=== PATIENT | female | born 1950 | race African-American/Black ===

== ENCOUNTER → 2016-07-26 | Outpatient (CLI) | payer MEDICARE ==
[~2016-07-26] MED LIST: REGADENOSON INJ 0.4 MG/5 ML DISP.SYRIN IV ONE
--- NOTE | 2016-07-26 20:51 | DRAGON STRESS TEST REPORT ---
ntravenous Lexiscan Cardiolite stress test using single photon emmision computerized tomography. Date of procedure: 07/26/2016 Ordering Provider: Dr. Olga Hicks. Primary care provider: Dr. Lorenz. Indication: Chest pain. Coronary risk factors: Age, diabetes mellitus non- insulin-dependent, hypertension, and dyslipidemia Resting EKG: Sinus Rhythm. No acute changes. The patient had no chest pain or discomfort, and there were no arrhythmias seen Stress EKG:[ No changes of ischemia. Reason for termination: Protocol. Conclusions: Normal EKG and hemodynamic response to IV Lexiscan. Nuclear data: At rest the patient was given 14.83 millicuries of technetium 99m sestamibi injected intravenously. As per protocol rest non gated SPECT images were obtained. Subsequently the patient was given intravenous Lexiscan at a dose of 0.4 mg in 5 mL intravenously, followed by flush with normal saline. Subsequently the stress dose of 43.1 millicuries of technetium 99m sestamibi was injected intravenously. As per protocol stress gated images were obtained. Nuclear interpretation: Review of images showed that all segments of the myocardium had normal perfusion at rest, and normal perfusion post stress with IV Lexiscan. All segments of the myocardium had normal motion, contraction, and thickening by gated study. T. I D. ratio was normal at 1.00. Computer read rest, and stress left ventricular ejection fraction were 72 %, and 66 %, respectively. Conclusion: 1. There is no scintigraphic evidence of Lexiscan induced myocardial ischemia. 2. There is no scintigraphic evidence of myocardial infarction/scar. Recommendations: Aggressive risk factor modification, and treating the underlying co- morbidities. MTDD
== END ==
LOC: RAD 07:49
PROVIDERS: ATTEND Internal Medicine
DX: R07.9 Chest pain, unspecified (principal)
CPT/HCPCS: 93017; 78452; A9500; J2785; Q9969

== ENCOUNTER 2018-03-27 08:30 | Observation (INO) | payer MEDICARE ==
[~2018-03-27 08:30] MED LIST changes: +GLYCOPYRROLATE 1 MG/5 ML SYRINGE ONE; +LIDOCAINE 2% INJ-PF (20 MG/ML) 2 ML AMPUL ONE; +NEOSTIGMINE METHYLSULFATE 10 MG/10 ML VIAL ONE; -REGADENOSON INJ 0.4 MG/5 ML DISP.SYRIN IV ONE; +ROCURONIUM BROMIDE INJ 50 MG/5 ML VIAL IV ONE; +SUCCINYLCHOLINE CHLORIDE INJ 200 MG/10 ML VIAL ONE
[2018-03-27] MEDS ORDERED: RINGERS SOLUTION,LACTATED 1,000 ML IV ONE (08:50)
[2018-03-27] MEDS ORDERED: FENTANYL CITRATE INJ/PF 100 MCG/2 ML AMPUL IV ONE (08:51)
[2018-03-27] MEDS ORDERED: ONDANSETRON HCL INJ/PF 4 MG/2 ML SDV IV ONE (08:51)
--- NOTE | 2018-03-27 08:56 | ER Document Report ---
ED General - General Chief Complaint: Rectal Pain Stated Complaint: RECTAL PAIN Time Seen by Provider: 03/27/18 08:46 Notes: Patient is a 67-year-old female that presents to the emergency department for chief complaint of rectal pain. Patient states she has been having rectal pain due to a hemorrhoid over the last few weeks, she went to see the manager diabetes today, who referred her to the emergency department, for possible surgical intervention. Patient rates the pain currently as a 10 out of 10, sharp pain, at rest, and seems to be worse with bowel movements. She denies noting any bleeding associated with this hemorrhoid. She denies noting any fevers, chills, nausea, vomiting or abdominal pain. Denies any other associated symptoms at this time. She does report a history of thrombosed hemorrhoids in the past and required surgery. Past Medical History: CAD, hypertension Past Surgical History: PCI with 2 stents, hysterectomy Social History: Denies tobacco, alcohol or drug use Family History: Reviewed and noncontributory for presenting illness Allergies: Reviewed, see documented allergy list. REVIEW OF SYSTEMS: Unless otherwise stated in this report the patient's positive and negative responses for review of systems for constitutional, eyes, ENT, cardiovascular, respiratory, gastrointestinal, neurological, genitourinary, musculoskeletal, and integumentary systems and related systems to the presenting problem are either as stated in the HPI or were not pertinent or were negative for the symptoms and/or complaints related to the presenting medical problem. PHYSICAL EXAMINATION: Vital signs reviewed, nursing noted reviewed. GENERAL: Well-appearing, well-nourished and appears rather uncomfortable and in pain HEAD: Atraumatic, normocephalic. EYES: Eyes appear normal, extraocular movements intact, sclera anicteric, conjunctiva are normal. ENT: nares patent, oropharynx clear without exudates. Moist mucous membranes. NECK: Normal range of motion, supple without lymphadenopathy LUNGS: Breath sounds clear to auscultation bilaterally and equal. No wheezes rales or rhonchi. HEART: Regular rate and rhythm without murmurs ABDOMEN: Soft, nontender, normoactive bowel sounds. No rebound, guarding, or rigidity. No masses appreciated. RECTAL EXAM: Noted is a 3 cm thrombosed external hemorrhoid, on the right, internal rectal exam not performed, patient is rather tender EXTREMITIES: Nontender, good range of motion, no pitting or edema. NEUROLOGICAL: No focal neurological deficits. Moves all extremities spontaneously Motor and sensory grossly intact on exam. PSYCH: Appears uncomfortable, but appropriate and answering questions. SKIN: Warm, Dry, normal turgor, no rashes or lesions noted on exposed skin TRAVEL OUTSIDE OF THE [place] IN LAST 30 DAYS: No - Related Data Allergies/Adverse Reactions: codeine [Codeine] Allergy (Severe, Verified 03/27/18 08:38) rash Aourona-Wci-Eus Reductase Inhibitor Allergy (Severe, Verified 03/27/18 08:38) cramps Past Medical History - Social History Smoking Status: Never Smoker Family History: Reviewed & Not Pertinent - Past Medical History Cardiac Medical History: Reports: Hx Hypertension Denies: Hx Coronary Artery Disease, Hx Heart Attack Pulmonary Medical History: Denies: Hx Asthma, Hx Bronchitis, Hx COPD, Hx Pneumonia Neurological Medical History: Denies: Hx Cerebrovascular Accident, Hx Seizures Endocrine Medical History: Reports: Hx Diabetes Mellitus Type 2 Musculoskeletal Medical History: Denies Hx Arthritis Past Surgical History: Reports: Hx Hysterectomy, Hx Tonsillectomy - Immunizations Hx Diphtheria, Pertussis, Tetanus Vaccination: Yes Hx Pneumococcal Vaccination: 03/22/13 Physical Exam - Vital signs Vitals: Temp Pulse Resp BP Pulse Ox 98.7 F 76 16 153/83 H 96 03/27/18 08:39 03/27/18 08:39 03/27/18 08:39 03/27/18 08:39 03/27/18 08:39 Course - Re-evaluation Re-evalutation: Patient seen and examined vital signs reviewed. Laboratory data and imaging were ordered as appropriate for the patient's presenting symptoms and complaint, with consideration of any critical or life threatening conditions that may be associated with their obtained history and exam as noted above. Patient was treated with IV fluids, fentanyl, and Zofran Results were reviewed when available and demonstrated unremarkable preoperative testing results The patient was re-evaluated and was stable Evaluation was most consistent with thrombosed hemorrhoid, case discussed with the surgeon who graciously accepted the patient under their service and will take her to the operating room later today. Results were discussed with the patient at this point after careful consideration I feel that that patient should be admitted to the hospital. This was discussed with the patient that it is in the best interest for their care to be admitted for further evaluation and management. Patient agreed with this plan of care. A call was placed to the admitted physician, Dr. Connelly who graciously accepted the patient onto their service. *Note is created using voice recognition software and may contain spelling, syntax or grammatical errors. Laboratory 03/27/18 03/27/18 08:58 08:58 WBC 10.1 RBC 4.03 Hgb 12.2 Hct 36.4 MCV 91 MCH 30.3 MCHC 33.5 RDW 13.5 Plt Count 366 Seg Neutrophils % 79.4 H Lymphocytes % 15.0 Monocytes % 4.0 Eosinophils % 1.0 Basophils % 0.6 Absolute Neutrophils 8.0 Absolute Lymphocytes 1.5 Absolute Monocytes 0.4 Absolute Eosinophils 0.1 Absolute Basophils 0.1 Sodium 141.5 Potassium 3.6 Chloride 102 Carbon Dioxide 28 Anion Gap 12 BUN 18 Creatinine 0.98 Est GFR ( Amer) > 60 Est GFR (Non-Af Amer) 56 L Glucose 186 H Calcium 9.2 Total Bilirubin 0.9 Direct Bilirubin 0.3 Neonat Total Bilirubin Not Reportable Neonat Direct Bilirubin Not Reportable Neonat Indirect Bili Not Reportable AST 30 ALT 39 Alkaline Phosphatase 103 Total Protein 7.5 Albumin 4.1 Chest X-Ray 03/27/18 08:51 IMPRESSION: NO ACUTE RADIOGRAPHIC FINDING IN THE CHEST. - Vital Signs Vital signs: Temp Pulse Resp BP Pulse Ox 98.5 F 66 16 135/67 H 100 03/27/18 12:16 03/27/18 12:16 03/27/18 12:16 03/27/18 12:16 03/27/18 12:16 - Laboratory Result Diagrams: 03/27/18 08:58 03/27/18 08:58 Laboratory results interpreted by me: 03/27/18 03/27/18 08:58 08:58 Seg Neutrophils % 79.4 H Est GFR (Non-Af Amer) 56 L Glucose 186 H - EKG Interpretation by Me Additional EKG results interpreted by me: EKG demonstrates sinus rhythm with a ventricular rate of 79 bpm, normal axis, normal intervals, no evidence of acute ischemia on this EKG, there is prior EKG for comparison from 12/25/2014, without significant change. Discharge - Discharge Clinical Impression: Thrombosed external hemorrhoid Condition: Stable Disposition: ADMITTED INPATIENT Admitting Provider: Surgicalist - Dr. Connelly Unit Admitted: Surgical Floor
[2018-03-27 09:15] LABS: ABSOLUTE BASOPHILS # (AUTO) 0.1 10^3/uL (0.0-0.2); ABSOLUTE EOSINOPHILS # (AUTO) 0.1 10^3/uL (0.0-0.6); ABSOLUTE LYMPHOCYTES (AUTO) 1.5 10^3/uL (0.5-4.7); ABSOLUTE MONOCYTES (AUTO) 0.4 10^3/uL (0.1-1.4); BASOPHILS % (AUTO) 0.6 % (0-2); HEMATOCRIT 36.4 % (36.0-47.0); HEMOGLOBIN 12.2 g/dL (12.0-15.5); MEAN CORPUSCULAR HEMOGLOBIN 30.3 pg (27.0-33.4); MEAN CORPUSCULAR HGB CONC 33.5 g/dL (32.0-36.0); MEAN CORPUSCULAR VOLUME 91 fl (80-97); PLATELET COUNT 366 10^3/uL (150-450); RED BLOOD COUNT 4.03 10^6/uL (3.72-5.28); RED CELL DISTRIBUTION WIDTH 13.5 % (11.5-14.0); SEGMENTED NEUTROPHILS % (AUTO) 79.4 % (42-78); TOTAL CELLS COUNTED % (AUTO) 100 %; WHITE BLOOD COUNT 10.1 10^3/uL (4.0-10.5)
[2018-03-27] MEDS ORDERED: MORPHINE SULFATE 10 MG/ML INJ IV PRN ×2 (09:36→16:21)
[2018-03-27] MEDS ORDERED: NORMAL SALINE 1000 ML 1,000 ML IV PRN (09:36)
[2018-03-27] MEDS ORDERED: ONDANSETRON HCL INJ/PF 4 MG/2 ML SDV IV PRN (09:36)
[2018-03-27] MEDS ORDERED: GLUCAGON,HUMAN RECOMB 1 MG INJ IM PRN (09:43)
[2018-03-27] MEDS ORDERED: DEXTROSE 50%-WATER 25 GM/50 ML DISP.SYRIN IV PRN ×2 (09:43)
[2018-03-27] MEDS ORDERED: INSULIN LISPRO 100 UNIT/ML 3 ML VIAL SUBCUT PRN (09:43)
[2018-03-27] MEDS ORDERED: DEXTROSE 40% GEL 15 GM TUBE PO PRN ×2 (09:43)
--- NOTE | 2018-03-27 09:54 | PDOC H&P ---
History of Present Illness Admission Date/PCP: 03/27/18 09:33 ADRIANNE ARENAS MD Patient complains of: Rectal pain, thrombosed hemorrhoids. History of Present Illness: BRIDGET BASURTO is a 67 year old female with a 2-3-day history of anorectal pain. She noticed swelling in the area. She has a history of hemorrhoids, treated via nonsurgical means. The patient reports that her pain has increased significantly over the last 24 hours. The patient went to her head turbine operator today who recommended hospital admission and sent her to the ER. The patient reports that her pain is sharp and stabbing, unrelenting, and 10 out of 10. The patient reports dysuria secondary to pain. Her pain does not radiate. The patient denies melena, hematochezia, hematemesis, constipation , diarrhea, abdominal pain, chest pain, shortness of breath, fevers, chills, nausea, vomiting, dizziness, orthostasis, blurry vision. Her chronic medical conditions include diabetes and hypertension. Past Medical History Cardiac Medical History: Reports: Hypertension Denies: Coronary Artery Disease, Myocardial Infarction Pulmonary Medical History: Denies: Asthma, Bronchitis, Chronic Obstructive Pulmonary Disease (COPD), Pneumonia Neurological Medical History: Denies: Seizures Endocrine Medical History: Reports: Diabetes Mellitus Type 2 Musculoskeltal Medical History: Denies: Arthritis Hematology: Denies: Anemia Past Surgical History Past Surgical History: Reports: Hysterectomy, Tonsillectomy Social History Smoking Status: Never Smoker Frequency of Alcohol Use: None Drugs: None Hx Prescription Drug Abuse: No Family History Family History: Reviewed & Not Pertinent Parental Family History Reviewed: Yes Children Family History Reviewed: Yes Sibling(s) Family History Reviewed.: Yes Medication/Allergy Home Medications: Calcium/Magnesium/Vit D3 [Calcium 500 Mg Tablet] 1 each PO DAILY 12/23/11 Metformin HCl [Glucophage 500 Mg Tablet] 500 mg PO BID 12/23/11 Tradjenta 5 mg PO ASDIR PRN 12/23/11 Aspirin [Aspirin 81 mg Chewable Tablet] 81 mg PO DAILY 03/28/13 Valsartan/Hydrochlorothiazide [Diovan Hct 320-25 mg Tablet] 1 each PO DAILY Oxycodone HCl 5 mg PO Q6 PRN 03/31/13 Allergies/Adverse Reactions: codeine [Codeine] Allergy (Severe, Verified 03/27/18 08:38) rash Camztbl-Nuf-Mlt Reductase Inhibitor Allergy (Severe, Verified 03/27/18 08:38) cramps Review of Systems Constitutional: ABSENT: anorexia, chills, fatigue, fever(s), headache(s) Eyes: ABSENT: visual disturbances Ears: ABSENT: hearing changes Nose, Mouth, and Throat: ABSENT: sore throat Cardiovascular: ABSENT: chest pain, orthropnea, palpitations Respiratory: ABSENT: cough, dyspnea Gastrointestinal: PRESENT: other - Severe anorectal pain and swelling. ABSENT: abdominal pain, bloating, constipation, diarrhea, heartburn, hematemesis, hematochezia, melena, nausea, vomiting Genitourinary: PRESENT: difficulty urinating Musculoskeletal: ABSENT: back pain Integumentary: ABSENT: pruritus, rash Neurological: ABSENT: abnormal speech, confusion, convulsions, dizziness Psychiatric: ABSENT: anxiety, depression Endocrine: ABSENT: cold intolerance, heat intolerance Hematologic/Lymphatic: ABSENT: easy bleeding, easy bruising Physical Exam General appearance: PRESENT: mild distress - Anorectal pain, obese Head exam: PRESENT: atraumatic, normocephalic Eye exam: PRESENT: EOMI, PERRLA. ABSENT: scleral icterus Mouth exam: PRESENT: moist, neck supple Teeth exam: ABSENT: poor dentation Neck exam: ABSENT: meningismus, tenderness, thyromegaly, tracheal deviation Respiratory exam: PRESENT: clear to auscultation forrest, unlabored. ABSENT: chest wall tenderness, rhonchi, tachypnea, wheezes Cardiovascular exam: PRESENT: RRR Pulses: PRESENT: normal radial pulses Vascular exam: PRESENT: normal capillary refill. ABSENT: pallor GI/Abdominal exam: PRESENT: soft. ABSENT: distended, guarding, rebound, tenderness Rectal exam: PRESENT: hemorrhoids - Large thrombosed internal and external hemorrhoids in the right anterior position Extremities exam: ABSENT: clubbing Musculoskeletal exam: ABSENT: deformity Neurological exam: PRESENT: alert, awake, oriented to person, oriented to place , oriented to time, oriented to situation, CN II-XII grossly intact Psychiatric exam: ABSENT: agitated, anxious, depressed Focused psych exam: ABSENT: delusional Skin exam: ABSENT: cyanosis, erythema, jaundice Assessment & Plan - Diagnosis (1) Thrombosed external hemorrhoid Is this a current diagnosis for this admission?: Yes - Plan Summary Plan Summary: This is a 67-year-old female with thrombosed, enlarged internal and external hemorrhoids on the right side. The patient is in exquisite pain, and will require surgical intervention. I have discussed this with her at length. The patient is requesting surgery be performed. Risks/benefits discussed, informed consent obtained, and all questions answered.
--- NOTE | 2018-03-27 09:56 | RADIOLOGY REPORT (SQ) ---
EXAM DESCRIPTION: CHEST SINGLE VIEW COMPLETED DATE/TIME: 03/27/2018 9:45 am REASON FOR STUDY: PREOP COMPARISON: 12/25/2014 EXAM PARAMETERS: NUMBER OF VIEWS: One view. TECHNIQUE: Single frontal radiographic view of the chest acquired. RADIATION DOSE: NA LIMITATIONS: None. FINDINGS: LUNGS AND PLEURA: No opacities, masses or pneumothorax. No pleural effusion. MEDIASTINUM AND HILAR STRUCTURES: No masses. Contour normal. HEART AND VASCULAR STRUCTURES: Heart normal in size. Normal vasculature. BONES: No acute findings. HARDWARE: None in the chest. OTHER: No other significant finding. IMPRESSION: NO ACUTE RADIOGRAPHIC FINDING IN THE CHEST. TECHNICAL DOCUMENTATION: JOB ID: [id number] [employer]- All Rights Reserved Reading location - IP/workstation name: [email or web address]
[2018-03-27 10:09] LABS: ALANINE AMINOTRANSFERASE 39 U/L (9-52); ALBUMIN 4.1 g/dL (3.5-5.0); ALKALINE PHOSPHATASE 103 U/L (38-126); ANION GAP 12 (5-19); ASPARTATE AMINO TRANSFERASE 30 U/L (14-36); BILIRUBIN,DIRECT 0.3 mg/dL (0.0-0.4); BILIRUBIN,TOTAL 0.9 mg/dL (0.2-1.3); BLOOD UREA NITROGEN 18 mg/dL (7-20); CALCIUM 9.2 mg/dL (8.4-10.2); CARBON DIOXIDE 28 mmol/L (22-30); CHLORIDE 102 mmol/L (98-107); GLUCOSE 186 mg/dL (75-110); POTASSIUM 3.6 mmol/L (3.6-5.0); SODIUM 141.5 mmol/L (137-145); TOTAL PROTEIN 7.5 g/dL (6.3-8.2)
--- NOTE | 2018-03-27 13:02 | EKG REPORT ---
SEVERITY:- NORMAL ECG - SINUS RHYTHM : Confirmed by: Gal Jones MD 27-Mar-2018 13:02:15
[2018-03-27] MEDS ORDERED: METRONIDAZOLE 500 MG/NS RTU 500 MG/100 ML RTUPB IV PRN (14:00)
[2018-03-27] MEDS ORDERED: DEXAMETHASONE SOD PHOSPHATE INJ 4 MG/1 ML VIAL ONE (14:14)
[2018-03-27] MEDS ORDERED: PROPOFOL INJ 200 MG/20 ML VIAL IV ONE (14:14)
[2018-03-27] MEDS ORDERED: ACETAMINOPHEN 1,000 MG/100 ML RTUPB IV ONE (14:14)
[2018-03-27] MEDS ORDERED: ONDANSETRON HCL INJ/PF 4 MG/2 ML SDV ONE ×2 (14:14→15:52)
[2018-03-27] MEDS ORDERED: MIDAZOLAM 2 MG/2 ML INJ ONE (14:14)
[2018-03-27] MEDS ORDERED: FENTANYL CITRATE INJ/PF 100 MCG/2 ML AMPUL ONE (14:14)
[2018-03-27] MEDS ORDERED: BUPIVACAINE HCL/DEX-WATER/PF 15 MG/2 ML AMPULE ONE (14:35)
[2018-03-27] MEDS ORDERED: BUPIVACAINE INJ/PF LIPOSOME/PF 266 MG/20 ML SDV ONE (14:35)
[2018-03-27] MEDS ORDERED: LIDOCAINE 2% JELLY 30 ML TUBE ONE (14:35)
[2018-03-27] MEDS ORDERED: BACITRACIN ZINC OINTMENT 15 GM ONE (14:35)
[2018-03-27] MEDS ORDERED: DIPHENHYDRAMINE HCL 50 MG/ML VIAL IV PRN (14:51)
[2018-03-27] MEDS ORDERED: FENTANYL CITRATE INJ/PF 100 MCG/2 ML AMPUL IV PRN ×3 (14:51)
[2018-03-27] MEDS ORDERED: PROMETHAZINE HCL INJ 25 MG/1 ML VIAL IV PRN ×2 (14:51)
[2018-03-27] MEDS ORDERED: MEPERIDINE HCL/PF INJ 25 MG/1 ML DISP.SYRIN IV PRN (14:51)
--- NOTE | 2018-03-27 16:00 | Operative Report ---
Nonrecallable Operative Report DATE OF SURGERY: 03/27/18 PREOPERATIVE DIAGNOSIS: Thrombosed internal and external hemorrhoids POSTOPERATIVE DIAGNOSIS: 1. Thrombosed internal and external hemorrhoids. 2. Perirectal abscess associated with thrombosed hemorrhoids. OPERATION: 1. Single column hemorrhoidectomy (right posterior column). 2. Incision and drainage of a perirectal abscess SURGEON: KIERAN MIRZA ANESTHESIA: GA TISSUE REMOVED OR ALTERED: Right posterior hemorrhoid column COMPLICATIONS: Abscess formation within the thrombosed hemorrhoid. ESTIMATED BLOOD LOSS: Minimal PROCEDURE: Drains/implants: None. Procedure in detail: After informed consent was obtained, the patient was brought to the operating room and laid in the prone jackknife position. The area of the anus and rectum were prepped and draped in a normal sterile fashion. An anal block was created using Exparel. A Hill-Santos retractor was inserted into the rectum. The right posterior column was edematous and thrombosed from the internal to the external position. The hemorrhoid was elevated, and excision of the hemorrhoid was undertaken using Bovie electrocautery. Once the excision extended to the perianal skin a large amount of purulent material was encountered in the perirectal space. It appears that the thrombosed hemorrhoid had become secondarily infected in the external position. The hemorrhoid was completely excised. The abscess cavity was explored and irrigated. There was no evidence of fistulization. Once this was confirmed, the mucosa was closed using 3-0 chromic suture in simple running fashion. This was done internally. The external anal skin was left open to allow drainage of the perirectal abscess. A dressing was then placed, and the procedure was concluded. All sponge, instrument, and needle counts were correct x2. Condition: Stable.
[2018-03-27] MEDS: BISACODYL 5 MG TABEC PO SCH (17:25)
[2018-03-27] MEDS: IBUPROFEN 800 MG TABLET PO SCH (17:25)
[2018-03-27] MEDS ORDERED: LIDOCAINE 4%/TETRACAINE 0.5%/EPI 0.18% 5 ML TOPICAL SOLN TOP SCH (18:00)
[2018-03-27] MEDS: PSYLLIUM SEED-SF 5.85 GM PACKET PO SCH (21:27)
[2018-03-27] MEDS: METRONIDAZOLE 500 MG/NS RTU 500 MG/100 ML RTUPB IV SCH (22:00)
[2018-03-27] MEDS: DIBUCAINE 1% OINTMENT 28 GM PR SCH ×2 (22:01→23:47)
[2018-03-27] MEDS: BACITRACIN ZINC OINTMENT 15 GM TP SCH (22:02)
[2018-03-28 06:24] LABS: ABSOLUTE BASOPHILS # (AUTO) 0.1 10^3/uL (0.0-0.2); ABSOLUTE LYMPHOCYTES (AUTO) 1.8 10^3/uL (0.5-4.7); ABSOLUTE MONOCYTES (AUTO) 0.6 10^3/uL (0.1-1.4); ABSOLUTE NEUT (AUTO) 7.6 10^3/uL (1.7-8.2); BASOPHILS % (AUTO) 1.2 % (0-2); EOSINOPHILS % (AUTO) 0.2 % (0-6); HEMATOCRIT 32.6 % (36.0-47.0); HEMOGLOBIN 10.8 g/dL (12.0-15.5); LYMPHOCYTES % (AUTO) 17.6 % (13-45); MEAN CORPUSCULAR HGB CONC 33.2 g/dL (32.0-36.0); MEAN CORPUSCULAR VOLUME 90 fl (80-97); MONOCYTES % (AUTO) 5.9 % (3-13); PLATELET COUNT 335 10^3/uL (150-450); RED BLOOD COUNT 3.61 10^6/uL (3.72-5.28); RED CELL DISTRIBUTION WIDTH 13.4 % (11.5-14.0); SEGMENTED NEUTROPHILS % (AUTO) 75.1 % (42-78); TOTAL CELLS COUNTED % (AUTO) 100 %; WHITE BLOOD COUNT 10.2 10^3/uL (4.0-10.5)
[2018-03-28] MEDS: METRONIDAZOLE 500 MG/NS RTU 500 MG/100 ML RTUPB IV SCH ×3 (06:29→20:59)
[2018-03-28] MEDS: DIBUCAINE 1% OINTMENT 28 GM PR SCH ×3 (06:29→20:59)
[2018-03-28 06:43] LABS: ANION GAP 12 (5-19); BLOOD UREA NITROGEN 19 mg/dL (7-20); CALCIUM 8.6 mg/dL (8.4-10.2); CARBON DIOXIDE 25 mmol/L (22-30); CHLORIDE 101 mmol/L (98-107); GLUCOSE 202 mg/dL (75-110); POTASSIUM 4.1 mmol/L (3.6-5.0); SODIUM 137.6 mmol/L (137-145)
[2018-03-28] MEDS: IBUPROFEN 800 MG TABLET PO SCH ×3 (09:35→17:23)
[2018-03-28] MEDS: PSYLLIUM SEED-SF 5.85 GM PACKET PO SCH ×2 (09:35→18:51)
[2018-03-28] MEDS: ENOXAPARIN SODIUM INJ 40 MG/0.4 ML DISP.SYRIN SUBCUT SCH (09:36)
[2018-03-28] MEDS: BACITRACIN ZINC OINTMENT 15 GM TP SCH ×3 (09:37→18:50)
[2018-03-28] MEDS: HYDROCODONE/ACETAMINOPHEN 10-325 MG TABLET PO PRN ×2 (09:37→22:26)
[2018-03-28] MEDS: BISACODYL 5 MG TABEC PO SCH ×2 (09:37→17:23)
--- NOTE | 2018-03-28 11:54 | PDOC PROGRESS REPORT ---
Subjective Progress Note for:: 03/28/18 Subjective:: Feels much better. Still having some perianal pain however. Reason For Visit: THROMBOSED INTERNAL AND EXTERNAL HEMORRHOIDS Physical Exam Vital Signs: Temp Pulse Resp BP Pulse Ox 97.9 F 61 16 105/47 L 99 03/28/18 11:17 03/28/18 11:17 03/28/18 11:17 03/28/18 11:17 03/28/18 11:17 Intake & Output 03/27/18 03/28/18 03/29/18 06:59 06:59 06:59 Intake Total 1770 Output Total 510 Balance 1260 Weight 90.8 kg General appearance: PRESENT: no acute distress, cooperative Respiratory exam: PRESENT: clear to auscultation forrest Cardiovascular exam: PRESENT: RRR Rectal exam: PRESENT: other - Perianal region with moderate swelling with some surrounding erythema. Slight drainage. Some tenderness but no fluctuance appreciated. Results Laboratory Results: 03/28/18 05:58 03/28/18 05:58 03/28/18 03/28/18 05:58 05:58 WBC 10.2 RBC 3.61 L Hgb 10.8 L Hct 32.6 L MCV 90 MCH 30.0 MCHC 33.2 RDW 13.4 Plt Count 335 Seg Neutrophils % 75.1 Lymphocytes % 17.6 Monocytes % 5.9 Eosinophils % 0.2 Basophils % 1.2 Absolute Neutrophils 7.6 Absolute Lymphocytes 1.8 Absolute Monocytes 0.6 Absolute Eosinophils 0.0 Absolute Basophils 0.1 Sodium 137.6 Potassium 4.1 Chloride 101 Carbon Dioxide 25 Anion Gap 12 BUN 19 Creatinine 1.04 Est GFR ( Amer) > 60 Est GFR (Non-Af Amer) 53 L Glucose 202 H Calcium 8.6 Impressions: Chest X-Ray 03/27/18 08:51 IMPRESSION: NO ACUTE RADIOGRAPHIC FINDING IN THE CHEST. Assessment & Plan - Diagnosis (1) Thrombosed external hemorrhoid Is this a current diagnosis for this admission?: Yes Plan: Status post excision. (2) Perianal abscess Is this a current diagnosis for this admission?: Yes Plan: Patient also had a associated abscess that was drained. She still has some swelling and erythema in this region although she has had marked improvement of her perianal symptoms from preoperatively. Will keep the patient in the hospital end of the day for IV antibiotics and sitz bath.
[2018-03-28] MEDS ORDERED: LEVOFLOXACIN 500 MG/D5W RTU 500 MG/100 ML RTUPB IV SCH (13:00)
[2018-03-28] MEDS: HYDROCHLOROTHIAZIDE 12.5 MG TABLET PO SCH (14:22)
[2018-03-28] MEDS: LOSARTAN POTASSIUM 50 MG TABLET PO SCH (14:22)
[2018-03-28] MEDS ORDERED: ONDANSETRON HCL INJ/PF 4 MG/2 ML SDV IV PRN (15:30)
[2018-03-28] MEDS: METFORMIN HCL 500 MG TABLET PO SCH (17:22)
[2018-03-29] MEDS: DIBUCAINE 1% OINTMENT 28 GM PR SCH (05:01)
[2018-03-29] MEDS: METRONIDAZOLE 500 MG/NS RTU 500 MG/100 ML RTUPB IV SCH (05:01)
[2018-03-29] MEDS: IBUPROFEN 800 MG TABLET PO SCH (08:09)
[2018-03-29] MEDS: METFORMIN HCL 500 MG TABLET PO SCH (08:10)
[2018-03-29] MEDS ORDERED: (PENDING PHARMACY ID) (Losartan/Hydrochlorothiazide [Hyzaar 100-12.5 Tablet] 1 TAB) PO SCH (10:00)
[2018-03-29] MEDS ORDERED: METOPROLOL SUCCINATE 50 MG TAB.SR.24H PO SCH (10:00)
[2018-03-29] MEDS: BACITRACIN ZINC OINTMENT 15 GM TP SCH (10:26)
--- NOTE | 2018-03-29 10:26 | PDOC PROGRESS REPORT ---
Subjective Progress Note for:: 03/29/18 Subjective:: no c/o Reason For Visit: THROMBOSED INTERNAL AND EXTERNAL HEMORRHOIDS Physical Exam Vital Signs: Temp Pulse Resp BP Pulse Ox 98.3 F 65 16 129/61 H 95 03/29/18 07:44 03/29/18 07:44 03/29/18 07:44 03/29/18 07:44 03/29/18 07:44 Intake & Output 03/28/18 03/29/18 03/30/18 06:59 06:59 06:59 Intake Total 1770 2112 Output Total 510 Balance 1260 2112 Weight 90.8 kg 90.7 kg General appearance: PRESENT: no acute distress Rectal exam: PRESENT: other - well healing right perianal surgical wound, minimal discomfort, no drainag Results Laboratory Results: 03/28/18 05:58 03/28/18 05:58 Impressions: Chest X-Ray 03/27/18 08:51 IMPRESSION: NO ACUTE RADIOGRAPHIC FINDING IN THE CHEST. Assessment & Plan - Diagnosis (1) Thrombosed external hemorrhoid Is this a current diagnosis for this admission?: Yes (2) Perianal abscess Is this a current diagnosis for this admission?: Yes - Plan Summary Plan Summary: A/ POD#2 agter hemorrhoid thombectomy and drainage of perirectal at hemorrhoid site VSS, AF PE shows a well healing perianal wound and no edema P/ Home today F/u with Dr. Connelly in 2 weeks Sitz bath x 30 min twice a day Apply triple antibiotic ointment (over the counter, ask Pharmacist) to perianum 1/2 inch 3 times a day apply dubuivacaine locvasl anesthetic cream to perianum as needed for pain every 2-3 hrs (about 1/2 inch) avoid constipation with Miralax 1-2 cups daily no rectal manipulations
[2018-03-29] MEDS: BISACODYL 5 MG TABEC PO SCH (10:27)
[2018-03-29] MEDS: PSYLLIUM SEED-SF 5.85 GM PACKET PO SCH (10:29)
[2018-03-29] MEDS: ENOXAPARIN SODIUM INJ 40 MG/0.4 ML DISP.SYRIN SUBCUT SCH (10:29)
[2018-03-29] MEDS: LOSARTAN POTASSIUM 50 MG TABLET PO SCH (10:31)
[2018-03-29] MEDS: HYDROCHLOROTHIAZIDE 12.5 MG TABLET PO SCH (10:33)
[2018-03-29 11:53] VITALS: BP 148/75
[2018-03-29] MEDS ORDERED: LEVOFLOXACIN 500 MG/D5W RTU 500 MG/100 ML RTUPB IV SCH (18:00)
--- NOTE | 2018-03-29 20:07 | DISCHARGE SUMMARY E ---
Discharge Summary NAME: BRIDGET BASURTO : 1950 AGE: 67Y ADMITTED: 03/27/2018 DISCHARGED: 03/29/2018 FINAL DIAGNOSES: 1. THROMBOSED EXTERNAL HEMORRHOID. 2. PERIRECTAL ABSCESS. PROCEDURE: 1. Thrombectomy of hemorrhoid. 2. Incision and drainage of perirectal abscess. COMPLICATIONS: None. HOSPITAL COURSE: This is a 67-year-old female admitted for perianal pain. She was taken to surgery on the same day of admission, and she underwent thrombectomy of an external hemorrhoid together with incision and drainage of perirectal abscess, localized to the level of the hemorrhoid. The patient was hospitalized, kept on IV antibiotics, pain control, IV fluids, and sitz baths. She progressively improved. On the day of discharge, 03/29/2018, the patient had no complaints. Physical exam was unremarkable with a well-healing perianal wound without evidence of cellulitis or drainage. DISCHARGE ORDERS: The patient was discharged 03/29/2018. Followup with Dr. Connelly in 2 weeks. Apply triple antibiotic ointment to the periuanum, to be purchased over the counter, 3 times a day, about 1/2 inch each time. Apply bupivacaine cream to the perianal area as needed every 3 hours for pain. Continue home medications. Follow up with primary care physician as needed. Avoid constipation with Metamucil 1-2 tablespoons mixed with juice by mouth daily. Sitz baths twice a day, 30 minutes each. Tylenol/Aleve as needed for pain DICTATING PHYSICIAN: PRADIP GARCIA M.D. [id number] PHY#: [id number] ID: [id number] JOB#: [id number] ACCT: [id number] cc:Lalo LIMA M.D. > MTDD
== END 2018-03-29 12:45 | disposition home or self-care (01) ==
LOC: ER 08:30 → INTOOBSV 09:33 → EH 09:33 → OBSVTOIN 09:33 → 4S 13:23
PROVIDERS: ADMIT Surgery; ATTEND Surgery
PROC: 0D9P7ZZ Drainage of Rectum, Via Natural or Artificial Opening (ICD-10-PCS; 2018-03-27)
PROC: 06BY0ZC Excision of Hemorrhoidal Plexus, Open Approach (ICD-10-PCS; principal; 2018-03-27 14:45)
PROC: 3E02340 Introduction of Influenza Vaccine into Muscle, Percutaneous Approach (ICD-10-PCS; 2018-03-29)
DX: K64.5 Perianal venous thrombosis (principal); K61.1 Rectal abscess; K64.8 Other hemorrhoids; R30.0 Dysuria; E11.9 Type 2 diabetes mellitus without complications; I10 Essential (primary) hypertension; I25.10 Atherosclerotic heart disease of native coronary artery without angina pectoris; Z95.5 Presence of coronary angioplasty implant and graft; Z90.710 Acquired absence of both cervix and uterus; Z79.899 Other long term (current) drug therapy; Z79.82 Long term (current) use of aspirin; Z79.84 Long term (current) use of oral hypoglycemic drugs; Z23 Encounter for immunization
CPT/HCPCS: 93005; 99285; 96374; 96375; 36415 ×2; 82962 ×3; 85025 ×2; 80048; 80053; 88304 ×2; 71045; 90686; 94799; 93010; 46255; 46040; G0378 ×3; G0008; J2250; J1956; J3490 ×7; A9270 ×13; J1100; J3010; J2270; J1650 ×2; J0330; J2405; J7030; J7120; J2704; J0131; C9290; 902; 90471; J1815

== ENCOUNTER → 2018-08-30 | Outpatient (CLI) | payer MEDICARE ==
--- NOTE | 2018-08-30 11:38 | RADIOLOGY REPORT (SQ) ---
EXAM DESCRIPTION: C SP 3 VWS OR LESS COMPLETED DATE/TIME: 08/30/2018 11:25 am REASON FOR STUDY: CERVICALGIA M54.2 CERVICALGIA COMPARISON: None. NUMBER OF VIEWS: Two views. TECHNIQUE: AP and lateral radiographic images acquired of the cervical spine. LIMITATIONS: None. FINDINGS: MINERALIZATION: Normal. ALIGNMENT: Anatomic. VERTEBRAE: Vertebral bodies of normal height. DISCS: There is multilevel disc space narrowing. Small anterior osteophytes present throughout the c ervical spine. HARDWARE: None in the spine. SOFT TISSUES: No masses or calcifications. Lung apices clear. OTHER: No other significant finding. IMPRESSION: Multilevel spondylosis. No acute findings. TECHNICAL DOCUMENTATION: JOB ID: [id number] [employer]- All Rights Reserved Reading location - IP/workstation name: [email or web address]
== END ==
LOC: OD 11:15
PROVIDERS: ATTEND Internal Medicine
DX: M54.2 Cervicalgia (principal); M47.892 Other spondylosis, cervical region
CPT/HCPCS: 72040

== ENCOUNTER → 2019-08-22 | Outpatient (CLI) | payer MEDICARE ==
--- NOTE | 2019-08-22 11:55 | RADIOLOGY REPORT (SQ) ---
EXAM DESCRIPTION: CTA CHEST COMPLETED DATE/TIME: 08/22/2019 11:23 am REASON FOR STUDY: PLEURISY (R09.1) R09.1 PLEURISY COMPARISON: 09/22/2010 TECHNIQUE: CT scan of the chest performed using helical scanning technique with dynamic intravenous contrast injection. Images reviewed with lung, soft tissue and bone windows. Reconstructed coronal and sagittal MPR images reviewed. Additional 3 dimensional post-processing performed to develop Maximal Intensity Projection images (LA P). All images stored on PACS. All CT scanners at this facility use dose modulation, iterative reconstruction, and/or weight based d osing when appropriate to reduce radiation dose to as low as reasonably achievable (ALARA). [facility]: Dose Right [facility]: CareDose [facility]: Dose Right [facility]: Teradose 4D [facility]: [place] CONTRAST TYPE AND DOSE: contrast/concentration: Isovue 350.00 mg/ml; Total Contrast Delivered: 61.0 ml; Total Saline Delivered: 70.0 ml Contrast bolus adequate for pulmonary arteries and aorta. RENAL FUNCTION: Creatinine 1.5 RADIATION DOSE: CT Rad equipment meets quality standard of care and radiation dose reduction techniq ues were employed. CTDIvol: 13.2 - 15.2 mGy. DLP: 543 mGy-cm. . LIMITATIONS: None. FINDINGS: LUNGS AND PLEURA: No masses, infiltrates, or pneumothorax. No pleural effusions or pleura l calcifications. AORTA AND GREAT VESSELS: No aneurysm. No dissection. HEART: No pericardial effusion. Normal right to left ventricular ratio. Scattered coronary atherosc lerosis with questionable LAD stent. PULMONARY ARTERIES: No emboli visualized in the main pulmonary arteries or the segmental branches. HILAR AND MEDIASTINAL STRUCTURES: No identified masses or abnormal nodes. HARDWARE: Questionable LAD stent. UPPER ABDOMEN: No acute findings. Left renal cyst. THYROID AND OTHER SOFT TISSUES: Unremarkable thyroid. Asymmetric left breast density. BONES: No acute bony abnormality. No suspicious osseous lesions. 3D MIPS: Confirm above findings. OTHER: No other significant finding. IMPRESSION: 1. No evidence of pulmonary embolus or other acute intrathoracic process. 2. Coronary atherosclerosis. 3. Asymmetric left breast density. Recommend correlation with mammographic history. COMMENT: Quality ID # [id number]: Final reports with documentation of one or more dose reduction techniques (e.g., Automated exposure control, adjustment of the mA and/or kV according to patient size, use of iterative reconstruction technique) TECHNICAL DOCUMENTATION: JOB ID: [id number] 2010 [employer]- All Rights Reserved Reading location - IP/workstation name: [email or web address]
== END ==
LOC: RAD 10:35
PROVIDERS: ATTEND Internal Medicine
DX: R09.1 Pleurisy (principal); I25.10 Atherosclerotic heart disease of native coronary artery without angina pectoris
CPT/HCPCS: 71275; 82565